=== PATIENT | female | born 1955 | race Caucasian/White ===

== ENCOUNTER 2023-11-21 22:16 | Emergency (ER) | payer SELFPAY ==
[2023-11-21 22:26] VITALS: BMI 41.5
[2023-11-21 22:49] VITALS: TEMP 97.8
[2023-11-22] MEDS ORDERED: DIPHTH,PERTUSS(ACELL),TET 0.5 ML DISP.SYRIN IM ONE (00:15)
[2023-11-22] MEDS: DIPHTH,PERTUSS(ACELL),TET 0.5 ML DISP.SYRIN IM ONE (00:17)
[2023-11-22 00:23] VITALS: BP 158/98; PULSE 68; RESP 16
== END 2023-11-22 01:19 | disposition home or self-care (01) ==
LOC: FER 22:16
PROC: 0HQ1XZZ Repair Face Skin, External Approach (ICD-10-PCS; principal; 2023-11-22)
PROC: 3E0234Z Introduction of Serum, Toxoid and Vaccine into Muscle, Percutaneous Approach (ICD-10-PCS; 2023-11-22)
DX: S01.81XA Laceration without foreign body of other part of head, initial encounter (principal); W18.40XA Slipping, tripping and stumbling without falling, unspecified, initial encounter; W22.8XXA Striking against or struck by other objects, initial encounter; Z23 Encounter for immunization
CPT/HCPCS: 70450-TC; 72125-TC; 90715; 99284-25

== ENCOUNTER 2025-04-02 06:24 | Day surgery (SDC) | payer BC ==
[2025-03-24 14:42] VITALS: BMI 47.2
[2025-04-02 11:25] VITALS: TEMP 97.9
[2025-04-02 12:21] VITALS: BP 117/61; PULSE 77; RESP 20
== END 2025-04-02 12:21 | disposition home or self-care (01) ==
LOC: JASU-ENDO 06:24
PROVIDERS: ATTEND Internal Medicine Gastroenterology
PROC: 0DJD8ZZ Inspection of Lower Intestinal Tract, Via Natural or Artificial Opening Endoscopic (ICD-10-PCS; principal; 2025-04-02 11:00)
DX: Z12.11 Encounter for screening for malignant neoplasm of colon (principal); Z80.0 Family history of malignant neoplasm of digestive organs; K57.30 Diverticulosis of large intestine without perforation or abscess without bleeding; K64.9 Unspecified hemorrhoids